=== PATIENT | female | born 1990 | race Caucasian/White ===

== ENCOUNTER 2018-02-05 03:27 | Emergency (ER) | payer OTHER ==
[2018-02-05] MEDS ORDERED: ONDANSETRON 4 MG/2 ML VIAL IVP ONE (03:47)
[2018-02-05] MEDS ORDERED: KETOROLAC 15 MG/1 ML SDV IVP ONE (04:04)
[2018-02-05] MEDS ORDERED: NS 1,000 ML IV ONE (04:04)
[2018-02-05] MEDS ORDERED: FAMOTIDINE 20 MG/NACL 50 ML IV ONE (04:04)
[2018-02-05 04:06] VITALS: O2SAT 97
--- NOTE | 2018-02-05 04:06 | EDPHY ---
H & P Stated Complaint: difficulty breathing "rope around chest" Time Seen by Provider: 02/05/18 03:41 HPI/ROS: HPI The patient presents with epigastric abdominal pain which has been present for the last 2 days. Symptoms started slowly and have been intermittent. She describes a rope like pulling sensation around her abdomen. This is worse with a deep breath and has made her feel short of breath. She has had nausea without any vomiting. She has had anorexia. She had 1 episode of diarrhea. She could not sleep this morning so she came into the emergency department. She has no prior history of similar. She has no prior abdominal operations.. REVIEW OF SYSTEMS Constitutional: No fever, no chills. Eyes: No discharge. ENT: No sore throat. Cardiovascular: No chest pain, no palpitations. Respiratory: No cough, no shortness of breath. Gastrointestinal: See HPI Genitourinary: No hematuria. Musculoskeletal: No back pain. Skin: No rashes. Neurological: No headache. PMHx: Healthy Soc Hx: Occasional alcohol drinker PHYSICAL General Appearance: Alert, tearful Eyes: Pupils equal and round no pallor or injection ENT, Mouth: Mucous membranes moist Respiratory: There are no retractions, lungs are clear to auscultation Cardiovascular: Regular rate and rhythm Gastrointestinal: Abdomen is soft with tenderness in the epigastrium without any rebound or guarding Neurological: A&O, moves all extremities Skin: Warm and dry, no rashes Musculoskeletal: Neck is supple non tender Extremities: symmetrical, full range of motion Psychiatric: Patient is oriented X 3, there is no agitation Source: Patient Exam Limitations: No limitations - Personal History LMP (Females 10-55): IUD In Place Current Tetanus/Diphtheria Vaccine: Yes Current Tetanus Diphtheria and Acellular Pertussis (TDAP): Yes - Medical/Surgical History Hx Asthma: No Hx Chronic Respiratory Disease: No Hx Diabetes: No Hx Cardiac Disease: No Hx Renal Disease: No Hx Cirrhosis: No Hx Alcoholism: No Hx HIV/AIDS: No Hx Splenectomy or Spleen Trauma: No Other PMH: Denies - Social History Smoking Status: Current some day smoker Constitutional: Initial Vital Signs Temperature (C) 36.3 C 02/05/18 03:29 Heart Rate 76 02/05/18 03:29 Respiratory Rate 18 02/05/18 03:29 Blood Pressure 105/72 02/05/18 03:29 O2 Sat (%) 99 02/05/18 03:29 O2 Delivery Mode Room Air Allergies/Adverse Reactions: No Known Allergies Allergy (Unverified 02/05/18 03:29) Home Medications: Medication Instructions Recorded Famotidine [Pepcid 20 MG (*)] 20 mg PO BID #30 tab 02/05/18 Medical Decision Making - Diagnostics Imaging Results: CT abdomen pelvis with IV contrast demonstrates no acute findings, discussed with Dr. Rae of Radiology. Imaging: Discussed imaging studies w/ drum dyeing machine operator Radiologist Procedures: Bedside limited abdominal Ultrasound- performed and interpreted by me. Indication: Upper abdominal pain Findings: Gallbladder is slightly distended, there is no gallstones present, no pericholecystic fluid, no sonographic Johnson's Impression: No sonographic evidence of cholecystitis or cholelithiasis. Differential Diagnosis: This is a 27-year-old female who presents with 2 days of epigastric abdominal pain associated with shortness of breath. On exam, vital signs are normal, she does have epigastric tenderness. Differential diagnosis includes gastritis, perforated gastric ulcer, biliary colic, cholecystitis, pancreatitis. In the emergency department, patient was given IV fluid, medication for pain including famotidine and Toradol. This caused much improvement in her symptoms. Labs were checked and did did demonstrate leukocytosis of 18,000. Right upper quadrant ultrasound was performed and was normal by me. She had a CT scan of her abdomen pelvis which is unremarkable. She continued to feel well and was discharged with return precautions. - Data Points Laboratory Results: Laboratory Results 02/05/18 04:00 02/05/18 04:00 02/05/18 02/05/18 02/05/18 05:45 04:00 04:00 WBC 18.74 10^3/uL H 10^3/uL (3.80-9.50) RBC 4.51 10^6/uL 10^6/uL (4.18-5.33) Hgb 13.3 g/dL g/dL (12.6-16.3) Hct 39.4 % % (38.0-47.0) MCV 87.4 fL fL (81.5-99.8) MCH 29.5 pg pg (27.9-34.1) MCHC 33.8 g/dL g/dL (32.4-36.7) RDW 13.6 % % (11.5-15.2) Plt Count 259 10^3/uL 10^3/uL (150-400) MPV 10.3 fL fL (8.7-11.7) Neut % (Auto) 79.7 % H % (39.3-74.2) Lymph % (Auto) 10.6 % L % (15.0-45.0) [place] % (Auto) 5.9 % % (4.5-13.0) Eos % (Auto) 2.7 % % (0.6-7.6) Baso % (Auto) 0.6 % % (0.3-1.7) Nucleat RBC Rel Count 0.0 % % (0.0-0.2) Absolute Neuts (auto) 14.92 10^3/uL H 10^3/uL (1.70-6.50) Absolute Lymphs (auto) 1.99 10^3/uL 10^3/uL (1.00-3.00) Absolute Monos (auto) 1.10 10^3/uL H 10^3/uL (0.30-0.80) Absolute Eos (auto) 0.51 10^3/uL H 10^3/uL (0.03-0.40) Absolute Basos (auto) 0.12 10^3/uL H 10^3/uL (0.02-0.10) Absolute Nucleated RBC 0.00 10^3/uL 10^3/uL (0-0.01) Immature Gran % 0.5 % % (0.0-1.1) Immature Gran # 0.10 10^3/uL 10^3/uL (0.00-0.10) Sodium 142 mEq/L mEq/L (135-145) Potassium 4.2 mEq/L mEq/L (3.5-5.2) Chloride 107 mEq/L mEq/L (97-110) Carbon Dioxide 22 mEq/l mEq/l (22-31) Anion Gap 13 mEq/L mEq/L (8-16) BUN 10 mg/dL mg/dL (7-23) Creatinine 0.5 mg/dL L mg/dL (0.6-1.0) Estimated GFR > 60 Glucose 95 mg/dL mg/dL (70-100) Calcium 9.0 mg/dL mg/dL (8.5-10.4) Total Bilirubin 1.0 mg/dL mg/dL (0.1-1.4) AST 20 IU/L IU/L (14-46) ALT 31 IU/L IU/L (9-52) Alkaline Phosphatase 76 IU/L IU/L (38-126) Total Protein 6.9 g/dL g/dL (6.3-8.2) Albumin 4.2 g/dL g/dL (3.5-5.0) Lipase 86 IU/L IU/L (23-300) Urine Test NEGATIVE Medications Given: Discontinued Medications Sodium Chloride (Ns) 1,000 mls @ 0 mls/hr IV EDNOW ONE; Wide Open PRN Reason: Protocol Stop: 02/05/18 04:05 Last Admin: 02/05/18 04:16 Dose: 1,000 mls Famotidine/Sodium Chloride (Pepcid 20 Mg (Premix)) 50 mls @ 200 mls/hr IV EDNOW ONE Stop: 02/05/18 04:18 Last Admin: 02/05/18 04:16 Dose: 50 mls Ketorolac Tromethamine (Toradol) 15 mg IVP EDNOW ONE Stop: 02/05/18 04:05 Last Admin: 02/05/18 04:15 Dose: 15 mg Ondansetron HCl (Zofran) 4 mg IVP EDNOW ONE Stop: 02/05/18 03:48 Last Admin: 02/05/18 04:15 Dose: 4 mg Departure - Departure Disposition: Home, Routine, Self-Care Clinical Impression: Epigastric abdominal pain Condition: Good Instructions: Acute Abdominal Pain (ED), Diet for Stomach Ulcers and Gastritis (ED), Gastroesophageal Reflux Disease (ED) Additional Instructions: Please return to the emergency department if your pain persists or you are worse in any way. Otherwise, I recommend you maintain a bland diet, drink plenty of fluids, and take the medication as prescribed. Referrals: Adriano Garcia MD [Medical Doctor] - As per Instructions Prescriptions: Famotidine [Pepcid 20 MG (*)] 20 mg PO BID #30 tab
[2018-02-05] MEDS ORDERED: ONDANSETRON 4 MG/2 ML VIAL ONE (04:08)
[2018-02-05 04:13] LABS: PLATELET COUNT 259 10^3/uL (150-400)
[2018-02-05 05:17] VITALS: RESP 16
[2018-02-05] MEDS ORDERED: IOPAMIDOL (ISOVUE-300) 100 ML BTL ONE (05:44)
[2018-02-05 07:35] VITALS: BP 108/60; PULSE 74; TEMP 98.6
== END 2018-02-05 07:34 | disposition home or self-care (01) ==
DX: R10.13 Epigastric pain (principal); E86.9 Volume depletion, unspecified; F17.200 Nicotine dependence, unspecified, uncomplicated
CPT/HCPCS: 96374; J1885; J2405; Q9967